=== PATIENT | male | born 1955 | race African-American/Black ===

== ENCOUNTER 2022-02-28 13:51 | Emergency (ER) | payer OTHER ==
[~2022-02-28] VITALS: Ht 175.3 cm; Wt 70.5 kg
[2022-02-28 14:11] VITALS: TEMP 100.3
[2022-02-28 16:06] LABS: COLLECTION METHOD CLEAN CATCH
[2022-02-28 16:13] LABS: MUCOUS Present (NOT PRESENT); PH 7 (5-8); SQUAMOUS EPITHELIAL 0-2 /hpf (0-10); URINE APPEARANCE Clear (CLEAR/HAZY); URINE BACTERIA None Seen /hpf (NONE SEEN); URINE BLOOD Negative (NEGATIVE); URINE COLOR Yellow (YELLOW); URINE GLUCOSE Negative (NEGATIVE); URINE KETONE Negative (NEGATIVE); URINE NITRATE Negative (NEGATIVE); URINE PROTEIN(semi-quant) Negative (NEGATIVE); URINE RBC 0-2 /hpf (0-2); URINE UROBILINOGEN Negative (NEGATIVE)
[2022-02-28] MEDS ORDERED: PERCOCET 325 MG1 TA2 PO ×2 (16:32)
[2022-02-28] MEDS ORDERED: MEDROL 4MG DOSPA4 MG PO (16:32)
[2022-02-28] MEDS ORDERED: NORFLEX 10100 MG/TAB PO (16:32)
[2022-02-28 16:43] VITALS: BP 156/96; PULSE 86
[2022-03-02] MEDS ORDERED: PERCOCET 325 MG1 TA2 PO (11:32)
== END 2022-02-28 16:44 | disposition home or self-care (01) ==
LOC: COL.ER 13:51
PROVIDERS: Physician Assistant
DX: M54.50 Low back pain, unspecified (principal); G89.29 Other chronic pain; Z88.5 Allergy status to narcotic agent; Z98.890 Other specified postprocedural states; Z20.822 Contact with and (suspected) exposure to COVID-19; Z28.310 Unvaccinated for COVID-19; X50.0XXA Overexertion from strenuous movement or load, initial encounter
CPT/HCPCS: J1170; J1885; J2360